=== PATIENT | female | born 1960 | race Caucasian/White ===

== ENCOUNTER → 2017-01-14 | Outpatient (REF) | payer OTHER ==
[2017-01-14 13:04] LABS: MEAN CORPUSCULAR HEMOGLOBIN 29.2 pg (27.0-33.0); MEAN CORPUSCULAR HGB CONC 31.7 g/dl (32.0-36.5); MEAN CORPUSCULAR VOLUME 92.3 fl (80.0-96.0); PLATELET COUNT, AUTOMATED 273 10^3/uL (150-450); RED CELL DISTRIBUTION WIDTH 13.8 % (11.5-14.5); WHITE BLOOD COUNT 5.5 10^3/uL (4.0-10.0)
[2017-01-14 13:26] LABS: ALBUMIN 4.1 GM/DL (3.2-5.2); ALBUMIN/GLOBULIN RATIO 1.41 (1.00-1.93); ALKALINE PHOSPHATASE 84 U/L (45-117); ALT/SGPT 33 U/L (12-78); ANION GAP 6 MEQ/L (8-16); AST/SGOT 16 U/L (7-37); BILIRUBIN,TOTAL 0.3 MG/DL (0.2-1.0); BLOOD UREA NITROGEN 15 MG/DL (7-18); CALCIUM LEVEL 9.4 MG/DL (8.5-10.1); CARBON DIOXIDE LEVEL 32 MEQ/L (21-32); CHLORIDE LEVEL 104 MEQ/L (98-107); CHOLESTEROL LEVEL 316 MG/DL (<200); CREATININE FOR GFR 0.62 MG/DL (0.55-1.02); GLOMERULAR FILTRATION RATE > 60.0 (>51); GLUCOSE, FASTING 91 MG/DL (70-105); POTASSIUM SERUM 4.3 MEQ/L (3.5-5.1); SODIUM LEVEL 142 MEQ/L (136-145); TRIGLYCERIDES LEVEL 256 MG/DL (<150)
== END ==
LOC: M SFHCPLAZ 08:22
PROVIDERS: ATTEND Nurse Practitioner Adult Health
DX: Z00.00 Encounter for general adult medical examination without abnormal findings (principal); E55.9 Vitamin D deficiency, unspecified

== ENCOUNTER 2017-04-08 08:56 | Day surgery (SDC) | payer BC, OTHER ==
[2017-04-08] MEDS: LR 1,000 ML IV (09:40)
[2017-04-08] MEDS: LIDOCAINE W/EPINEPHRINE 1% 20ML VIAL As Ordered (10:14)
[2017-04-08] MEDS ORDERED: MIDAZOLAM INJ 2 MG/2 ML VIAL (J2250) As Ordered (10:18)
[2017-04-08] MEDS ORDERED: fentaNYL 100 MCG/2 ML INJECTION (J3010) As Ordered (10:18)
[2017-04-08] MEDS ORDERED: LIDOCAINE 2% INJ 100 MG/5 ML SDV (FOR ANES.) As Ordered (10:20)
[2017-04-08] MEDS ORDERED: PROPOFOL 200 MG/20 ML VIAL As Ordered (10:20)
[2017-04-08] MEDS ORDERED: ONDANSETRON 4MG/2ML VIAL (J2405) As Ordered (10:22)
[2017-04-08] MEDS ORDERED: KETOROLAC 60 MG/2 ML VIAL (J1885) As Ordered (10:22)
[2017-04-08] MEDS ORDERED: dexameTHASONE 4 MG/ML 1ML VIAL (J1100) As Ordered (10:22)
== END 2017-04-08 11:35 | disposition home or self-care (01) ==
LOC: M SDC 08:56
DX: D17.1 Benign lipomatous neoplasm of skin and subcutaneous tissue of trunk (principal); E78.5 Hyperlipidemia, unspecified; F41.9 Anxiety disorder, unspecified; F32.9 Major depressive disorder, single episode, unspecified; R06.02 Shortness of breath; M12.9 Arthropathy, unspecified; J45.909 Unspecified asthma, uncomplicated; R06.83 Snoring; Z88.5 Allergy status to narcotic agent; Z79.899 Other long term (current) drug therapy; Z98.51 Tubal ligation status; Z90.89 Acquired absence of other organs; Z78.0 Asymptomatic menopausal state; Z87.891 Personal history of nicotine dependence
CPT/HCPCS: 21931

== ENCOUNTER → 2018-05-28 | Outpatient (REF) | payer OTHER ==
[~2018-05-28] MED LIST: ALOELIQ9 PO; CENTTAB10 PO; FISH100049 PO; GARL10004 PO; IBUPOTC PO; JOINCAP2 PO; TARTCAP PO; TURMCAP PO; VITA500046 PO; VITATAB11 PO; ZOLO50TA PO; ZYRT10CA5 PO
[2018-05-28 13:07] LABS: ALBUMIN 4.3 GM/DL (3.2-5.2); ALT/SGPT 31 U/L (12-78); BILIRUBIN,TOTAL 0.4 MG/DL (0.2-1.0); BLOOD UREA NITROGEN 15 MG/DL (7-18); CALCIUM LEVEL 9.3 MG/DL (8.5-10.1); CARBON DIOXIDE LEVEL 28 MEQ/L (21-32); CHLORIDE LEVEL 106 MEQ/L (98-107); CHOLESTEROL LEVEL 264 MG/DL (<200); CHOLESTEROL RISK RATIO 6.439 (<5); CREATININE FOR GFR 0.62 MG/DL (0.55-1.30); GLOMERULAR FILTRATION RATE > 60.0 (>51); GLUCOSE, FASTING 96 MG/DL (70-100); HDL CHOLESTEROL 41 MG/DL (>40); LDL CHOLESTEROL 191 MG/DL (<100); NON-HDL-C 223 MG/DL; POTASSIUM SERUM 3.9 MEQ/L (3.5-5.1); SODIUM LEVEL 140 MEQ/L (136-145); TOTAL PROTEIN 7.1 GM/DL (6.4-8.2); TRIGLYCERIDES LEVEL 160 MG/DL (<150)
[2018-05-28 13:08] LABS: TOTAL 25(OH) VITAMIN D 40.5 NG/ML (30.0-100.0); VITAMIN B12 LEVEL 1163 PG/ML (247-911)
== END ==
LOC: M SFHCPLAZ 11:01
PROVIDERS: ATTEND Nurse Practitioner Adult Health
DX: Z00.00 Encounter for general adult medical examination without abnormal findings (principal); E55.9 Vitamin D deficiency, unspecified

== ENCOUNTER → 2018-08-25 | Outpatient (CLI) | payer BC, OTHER ==
[~2018-08-25] MED LIST changes: +ALL10TAB28 PO; +BIOT50004 PO; +CART1TAB2 PO; +CBD OIL TOP; +CYMB1CAP5 PO; +FISH1000 PO; +MULTCAP PO; +NATU1TAB5 PO; +RESV1CAP2 PO; +TYLE650T35 PO
--- NOTE | 2018-08-25 09:37 | ECGEPIP ---
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
[2018-08-25 09:53] LABS: HEMATOCRIT 42.3 % (36.0-47.0); HEMOGLOBIN 13.7 g/dl (12.0-15.5); MEAN CORPUSCULAR HEMOGLOBIN 29.8 pg (27.0-33.0); MEAN CORPUSCULAR HGB CONC 32.4 g/dl (32.0-36.5); PLATELET COUNT, AUTOMATED 262 10^3/uL (150-450); WHITE BLOOD COUNT 4.3 10^3/uL (4.0-10.0)
[2018-08-25 10:03] LABS: INR 0.99; PROTHROMBIN TIME 12.8 SECONDS (11.8-14.0)
[2018-08-25 10:18] LABS: ALBUMIN 4.2 GM/DL (3.2-5.2); ALT/SGPT 34 U/L (12-78); BILIRUBIN,TOTAL 0.6 MG/DL (0.2-1.0); BLOOD UREA NITROGEN 11 MG/DL (7-18); CALCIUM LEVEL 9.4 MG/DL (8.5-10.1); CARBON DIOXIDE LEVEL 30 MEQ/L (21-32); CHLORIDE LEVEL 105 MEQ/L (98-107); CREATININE FOR GFR 0.71 MG/DL (0.55-1.30); GLOMERULAR FILTRATION RATE > 60.0 (>51); GLUCOSE, FASTING 97 MG/DL (70-100); POTASSIUM SERUM 4.1 MEQ/L (3.5-5.1); SODIUM LEVEL 140 MEQ/L (136-145); TOTAL PROTEIN 7.3 GM/DL (6.4-8.2)
[2018-08-25 10:23] LABS: ERYTHROCYTE SEDIMENTATION RATE 5 mm/hr (0-30)
--- NOTE | 2018-08-25 21:15 | REP ---
Clinical: Hypercholesterolemia and high risk factors. Arthritis . Comparison: None . Technique: PA and lateral. Findings: The mediastinum and cardiac silhouette are normal. The lung rodriguez are clear and without acute consolidation, effusion, or pneumothorax. The skeletal structures are intact and normal. Impression: 1. No acute cardiopulmonary process. Electronically Signed by Minor Leblanc MD 08/25/2018 09:06 P
== END ==
LOC: M LAB 09:09
PROVIDERS: ATTEND Orthopaedic Surgery
DX: Z01.818 Encounter for other preprocedural examination (principal); M17.12 Unilateral primary osteoarthritis, left knee

== ENCOUNTER 2018-09-08 06:50 | Inpatient (IN) | payer BC, OTHER ==
--- NOTE | 2018-09-04 11:21 | HPE ---
DATE OF ANTICIPATED ADMISSION: 09/08/2018 DATE OF VISIT: 09/04/2018 ATTENDING PHYSICIAN: Dr. Hall CHIEF COMPLAINT: Left knee pain and stiffness. HISTORY: The patient is a pleasant, 58-year-old female with progressively worsening left knee pain and stiffness. She failed to improve with conservative measures. She continues to have symptoms with weightbearing activities and activities of daily living. She consented for an elective left total knee arthroplasty with Dr. Hall for continued symptoms. Medical optimization completed with Dr. Hamilton and was available for review during today's visit. CURRENT MEDICATIONS: - Zyrtec 10 mg daily - fish oil 100 mg twice daily - vitamin D 5000 units daily - Biotin 10 mg daily - Cymbalta 30 mg daily - Metamucil powder once daily CHRONIC MEDICAL CONDITIONS: Anxiety, depression, history of parathyroidectomy, seasonal allergies. SURGICAL HISTORY: Colonoscopy, parathyroidectomy, cyst removal from breast. ALLERGIES: CODEINE. SOCIAL HISTORY: The patient does not use tobacco products. She occasionally consumes alcohol. REVIEW OF SYSTEMS: The patient denies fevers, chills, nausea, vomiting, or diarrhea. She denies chest pain, shortness of breath, lightheadedness, dizziness, or headaches. She denies any abdominal pain. The patient denies any recent upper respiratory or urinary tract infection symptoms. She continues to have left knee pain with weightbearing activities and activities of daily living. PHYSICAL EXAMINATION: General: Well-nourished, well-developed female, in no apparent distress. She is alert, oriented, and cooperative. Mood and affect are appropriate. Vital signs: Height 5 feet 6-1/2 inches. Weight 173 pounds. Temperature 97.2. Blood pressure 132/80. Heart rate 62. Respirations 18. Neck: Supple without lymphadenopathy. Heart: Regular rate and rhythm. Lungs: Clear to auscultation bilaterally. Abdomen: Soft, nontender to palpation. Bowel sounds are present. Musculoskeletal: Left knee reveals no erythema, edema, or ecchymosis. Her skin is intact. There is tenderness along the medial joint line. The patient has essentially full motion of the left knee with 5/5 strength of the left lower extremity. No hip irritability elicited with range of motion testing. The patient's calf is soft, nontender to palpation with no palpable cords noted. She is neurovascularly intact distally. LABORATORY DATA: Chest x-ray: No acute cardiopulmonary process. Left knee x-ray: Notable for end-stage degenerative changes. EKG: Sinus bradycardia with short OK interval. Low QRS voltage in the precordial leads in limb. Inferior myocardial infarction probably old. Prothrombin time12.8, INR 0.99. Comprehensive metabolic profile: Fasting glucose 97, BUN 11, creatinine 0.71, GFR greater than 60, sodium 140, potassium 4.1, chloride 105, carbon dioxide 30, anion gap decreased at 5, calcium 9.4, AST 18, ALT 34, alkaline phosphatase 97, total bilirubin 0.6, total protein 7.3, albumin 4.2, albumin-globulin ratio 1.35. Complete blood count: ESR 5, WBCs 4.3, RBCs 4.60, hemoglobin 13.7, hematocrit 42.3, platelets 262. IMPRESSION: Left knee degenerative arthritis with x-rays notable for end-stage degenerative changes. PLAN: The patient has consented for an elective left total knee arthroplasty with Dr. Hall for her continued symptoms. Medical optimization completed with Dr. [place]. [place]
[2018-09-08] VITALS (7 sets, daily range): BP systolic 100–112; BP diastolic 54–65
[~2018-09-08] VITALS: Ht 170.2 cm; Wt 77.1 kg
[2018-09-08] MEDS ORDERED: LR 1,000 ML IV ONE (07:00)
[2018-09-08] MEDS ORDERED: ACETAMINOPHEN 500 MG TAB PO ONE (07:00)
[2018-09-08] MEDS ORDERED: PROPOFOL 200 MG/20 ML VIAL As Ordered ONE (07:06)
[2018-09-08] MEDS ORDERED: LIDOCAINE 2% INJ 100 MG/5 ML SDV (FOR ANES.) As Ordered ONE ×2 (07:06→08:57)
[2018-09-08] MEDS ORDERED: BUPIVACAINE HCL 0.5% 30 ML VIAL As Ordered ONE (07:09)
[2018-09-08] MEDS ORDERED: dexameTHASONE 4 MG/ML 1ML VIAL (J1100) As Ordered ONE (07:10)
[2018-09-08] MEDS ORDERED: ONDANSETRON 4MG/2ML VIAL (J2405) As Ordered ONE ×2 (07:10→08:57)
[2018-09-08] MEDS ORDERED: fentaNYL 100 MCG/2 ML INJECTION (J3010) As Ordered ONE ×2 (08:22→08:59)
[2018-09-08] MEDS ORDERED: BUPIVACAINE HCL 0.25% 10 ML VIAL As Ordered ONE ×2 (08:22→08:39)
[2018-09-08] MEDS ORDERED: MIDAZOLAM INJ 2 MG/2 ML VIAL (J2250) As Ordered ONE ×2 (08:22→08:59)
[2018-09-08] MEDS ORDERED: BUPIVACAINE HCL 0.25% 30 ML VIAL As Ordered ONE (08:22)
[2018-09-08] MEDS ORDERED: ceFAZolin 1GM INJ (J0690 PER 500MG) As Ordered ONE (08:39)
[2018-09-08] MEDS ORDERED: TRANEXAMIC ACID 100 MG/ML 10ML VIAL As Ordered ONE (08:39)
[2018-09-08] MEDS ORDERED: BUPIVACAINE LIPOSOME/PF 1.3% 20ML VIAL (13.3MG/ML)(EXPAREL)(C9290 PER1MG) As Ordered ONE (08:40)
[2018-09-08] MEDS ORDERED: EPINEPHrine INJ 1 MG/ML 1ML AMP As Ordered ONE (08:40)
[2018-09-08] MEDS ORDERED: MIDAZOLAM INJ 2 MG/2 ML VIAL (J2250) IV ONE (09:30)
[2018-09-08] MEDS ORDERED: fentaNYL 100 MCG/2 ML INJECTION (J3010) IV ONE (09:30)
[2018-09-08] MEDS ORDERED: LIDOCAINE 1% MDV 20ML VIAL ONE (10:05)
[2018-09-08] MEDS ORDERED: ePHEDrine SULFATE 25 MG/5 ML(5MG/ML) SYRINGE As Ordered ONE ×2 (10:08→10:32)
[2018-09-08] MEDS ORDERED: METOCLOPRAMIDE INJ 10MG/2ML VIAL (J2765) As Ordered ONE (10:31)
[2018-09-08] MEDS ORDERED: HYDROMORPHONE HCL 0.5 MG/ 0.5 ML SYRINGE (J1170 PER 1) IV PRN ×2 (11:45)
[2018-09-08] MEDS ORDERED: fentaNYL 100 MCG/2 ML INJECTION (J3010) IV PRN (11:45)
[2018-09-08] MEDS ORDERED: METOCLOPRAMIDE INJ 10MG/2ML VIAL (J2765) IV PRN (11:45)
[2018-09-08] MEDS ORDERED: LR 1,000 ML IV SCH ×2 (11:45→13:15)
[2018-09-08] MEDS ORDERED: PROMETHAZINE INJ 25 MG/ML VIAL (J2550) IV PRN (11:45)
[2018-09-08] MEDS ORDERED: oxyCODONE 5MG TAB PO PRN (11:45)
--- NOTE | 2018-09-08 13:09 | REP ---
STATUS POST TKR: The femoral and tibial components of the total knee prosthetic device are well seated and well approximated. The alignment is near anatomical. There is expected postoperative soft tissue swelling. There is an anterior skin staple line in place. IMPRESSION: Status post TKR. Electronically Signed by Jagdeep Fuentes DO 09/08/2018 02:37 P
[2018-09-08] MEDS ORDERED: FLEET ENEMA PR PRN (13:15)
[2018-09-08] MEDS: ACETAMINOPHEN TAB 650MG DOSE (2X325MG) PO PRN (15:47)
[2018-09-08] MEDS ORDERED: PERCOCET 5MG/325MG TAB PO PRN (16:00)
[2018-09-08] MEDS: PERCOCET 5MG/325MG TAB PO PRN ×2 (18:31→22:30)
--- NOTE | 2018-09-08 21:48 | CR.PDOC ---
General Date of Consultation: Sep 08, 2018 Referring Provider: Steph Hall Primary Care Physician: Katiana Alberto Consultation REASON FOR CONSULTATION/CHIEF COMPLAINT:medical management post op left knee arthoplasty HISTORY OF PRESENT ILLNESS: 58 yo female with history of OA underwent left knee arthoplasty without complications. Medical management has been requested. Hope ent states pain is well controlled . she states no N, no V, no Cp, no SOB ALLERGIES: Please see below. HOME MEDICATIONS: Please see below. PAST MEDICAL HISTORY: 1. anxiety/depression 2. hyperlipdiemia 3. constipation 4. OA 5. seasonal allergies PAST SURGICAL HISTORY: 1. parathyroidectomy 2. right back lipoma removed 3. breast cyst removed FAMILY HISTORY: mother alive with OA/DJD, father alive with HTN,DM SOCIAL HISTORY: no tobacco, no EtOH, son recently engaged to be REVIEW OF SYSTEMS:10 systems reviewed and negative, except as listed in HPI PHYSICAL EXAMINATION: VITAL SIGNS: Please see below. GENERAL APPEARANCE: pleasant NAD AAOx3 HEENT: PEÑA/EOMI, oral mucosa moist RESPIRATORY: LCTA no W/R/R CARDIOVASCULAR: RRR no murmur ABDOMEN: soft NT ND NABS, obese EXTREMITIES: no ankle edema; left knee dressing intact, no drainage PSYCHIATRIC: normal mood, insight intact; normal affect LABORATORY DATA: Please see below. ASSESSMENT/PLAN: 1. s/p left knee arthroplasty - managment per ortho. 2. hyperlipidemia - continue home regimen 3. anxiety /Depression - currently well controlled with cymbalta. Her PCP recommended she increase the cymbalta in 2 days to 60mg. Discussed with patient that Cymbalta may lead to increased bleeding due to xarelto interaction (however, xarelto is currently at lower dose than used for PE/DVT). She will take this into consider before increasing her cymbalta. Advised if increased bleeding or bruising to see her PCP or go to nearest ER. 4. DVT prophylaxis - currently on xarelto. Advised NOT to use NSAIDS . Thank you for allowing to participate in the care of this patient. If you have any questions or concerns, please do not hesitate to call the hospitalist group Vital Signs/I&O Vital Signs Date Time Temp Pulse Resp B/P (MAP) Pulse Ox O2 Delivery O2 Flow Rate FiO2 09/08/18 15:30 96.5 90 15 109/64 (79) 96 Allergies Coded Allergies: codeine (Verified Adverse Reaction, Mild, nausea, 09/08/18) Home Medications Scheduled Biotin (Biotin) 5 Mg Capsule, 5,000 MCG PO DAILY, (Reported) Cartilage/Collagen/Bor/Hyalur (Move Free Ultra Tablet) 1 Each Tablet, 1 EACH PO DAILY, (Reported) Cetirizine HCl (Cetirizine HCl) 10 Mg Tablet, 10 MG PO DAILY, (Reported) Cholecalciferol (Vitamin D3) (Vitamin D3) 5,000 Unit Tablet, 5,000 UNIT PO DAILY, (Reported) Duloxetine Hcl (Cymbalta) 30 Mg Capsule.dr, 30 MG PO DAILY, (Reported) Multivitamin (Multivitamins) 1 Each Capsule, 1 CAP PO DAILY, (Reported) [place]-3 Fatty Acids/Fish Oil (Fish Oil 1,000 mg Capsule) 1 Each Capsule, 2,000 MG PO DAILY, (Reported) Resveratrol (Resveratrol) 250 Mg Capsule, Unknown Dose PO DAILY, (Reported) Scheduled PRN Acetaminophen (Tylenol Arthritis) 650 Mg Tablet.er, 2 TAB PO PRN PRN for PAIN, (Reported) Cannabidiol (Cbd Oil) Btl, TOP PRN PRN for PAIN, (Reported) knees ANDRAE GUTIERREZ DO Sep 08, 2018 15:39
[2018-09-09 02:30] VITALS: BP 108/63
[2018-09-09] MEDS: PERCOCET 5MG/325MG TAB PO PRN (02:34)
[2018-09-09 06:06] LABS: HEMATOCRIT 35.4 % (36.0-47.0); HEMOGLOBIN 11.6 g/dl (12.0-15.5); MEAN CORPUSCULAR HEMOGLOBIN 30.9 pg (27.0-33.0); MEAN CORPUSCULAR HGB CONC 32.8 g/dl (32.0-36.5); MEAN CORPUSCULAR VOLUME 94.1 fl (80.0-96.0); PLATELET COUNT, AUTOMATED 205 10^3/uL (150-450); RED BLOOD COUNT 3.76 10^6/uL (4.00-5.40); WHITE BLOOD COUNT 13.2 10^3/uL (4.0-10.0)
[2018-09-09 06:15] VITALS: BP 116/74
[2018-09-09 06:27] LABS: BLOOD UREA NITROGEN 13 MG/DL (7-18); CALCIUM LEVEL 8.8 MG/DL (8.5-10.1); CARBON DIOXIDE LEVEL 27 MEQ/L (21-32); CHLORIDE LEVEL 107 MEQ/L (98-107); CREATININE FOR GFR 0.72 MG/DL (0.55-1.30); GLOMERULAR FILTRATION RATE > 60.0 (>51); GLUCOSE, FASTING 129 MG/DL (70-100); POTASSIUM SERUM 3.8 MEQ/L (3.5-5.1); SODIUM LEVEL 141 MEQ/L (136-145)
[2018-09-09] MEDS: ACETAMINOPHEN TAB 650MG DOSE (2X325MG) PO PRN (06:50)
[2018-09-09] MEDS ORDERED: PERC5TAB12 PO (08:02)
[2018-09-09] MEDS ORDERED: XARE10TA PO (08:02)
[2018-09-09] MEDS ORDERED: MOM 30ML SUSPENSION UDC PO SCH (09:00)
[2018-09-09] MEDS ORDERED: MIRALAX *UNIT DOSE* 17GM PACKET PO SCH (09:00)
[2018-09-09] MEDS ORDERED: RIVAROXABAN 10 MG TAB (XARELTO) PO SCH (18:00)
--- NOTE | 2018-09-09 18:43 | RO ---
DATE OF PROCEDURE: 09/08/2018 PREPROCEDURE DIAGNOSIS: Degenerative arthritis of the left knee. POSTPROCEDURE DIAGNOSIS: Degenerative arthritis of the left knee. PROCEDURE: Left total knee arthroplasty using a size 5 cruciate-retaining femoral component. It was an Attune knee with a size 5 tibial tray and an 8 mm rotating platform polyethylene insert, and a 32 mm polyethylene button. All the components were cemented. The prosthesis was made by [employer]. SURGEON: Dr. Steph Hall JAVA LEAD DEVELOPER: Ms. Melony Mccord ANESTHESIA: Spinal with left femoral nerve block. SPECIMENS: Joint surface. COMPLICATIONS: None. ESTIMATED BLOOD LOSS: 20 mL. DESCRIPTION OF PROCEDURE: Antibiotics were given intravenously preoperatively, then successful left femoral nerve block and then a spinal anesthetic was induced, tourniquet placed on the left upper thigh and not inflated. The left lower extremity was carefully prepped and draped in the usual sterile fashion. After appropriate time out with the leg elevated, the tourniquet was inflated. Longitudinal incision was made for a medial parapatellar approach to the knee. Bovie cautery was used to coagulate crossing vessels. We subperiosteally dissected around the proximal, medial and lateral tibial plateaus, then everted the knee and flexed the knee, placed the drill down the center of the femoral canal followed by the intramedullary tiffany and the distal femoral cutting jig set at 9 degree resection level at 5 degree valgus for a left knee. Block was pinned into position. Distal femoral cut performed, AP sizing jig measured for a size 5. It was pinned into place with 3 degrees of external rotation. Then, the 4-in-1 block applied and anterior, posterior chamfer cuts performed. The notchplasty jig was placed for the trochlear notch, and the notch performed. We then exposed the proximal tibia and used the extramedullary alignment jig to estimate being parallel to the mechanical axis, referencing off the medial tibial condyle at 4 mm resection level. Block was pinned into position. Secondary check with the extramedullary tiffany confirmed that we appeared to be parallel to the mechanical axis, the proximal tibial osteotomy thus performed. Two small cysts on the posteromedial aspect of the tibia were debrided with a curette. We then placed the lamina slide forming machine tender medially and performed a completion lateral meniscectomy, debridement of the posterolateral osteophytes, there was a significant amount of chondrocalcinosis tissue which was also debrided with a rongeur. We then placed the lamina slide forming machine tender laterally and performed a completion medial meniscectomy and debridement of the posteromedial osteophytes and all the excess chondrocalcinosis tissue. The spacer block, 8 mm, fit the best with good symmetry and stability to varus/valgus stress testing, both in flexion and in extension. We then exposed the proximal tibia, sized for a #5 tibial tray, which was pinned into position, followed by the reamer and broach, excess medial osteophyte was removed with a rongeur. The trial 8 mm spacer was placed followed by the trial femoral component, brought the knee into extension, everted the patella, performed patellar osteotomy and sized for a 32 mm button. Lug holes drilled, patellofemoral tracking with the trial in place was anatomic. We then drilled the lug holes for the femur, removed all the trial components, copiously pulsatile lavage irrigated out the knee joint, placed Exparel in the subperiosteal tissues around the distal femur and proximal tibia as my plumber's assistant, Ms. Melony Mccord, mixed the cement on the back table as I prepared the bony surfaces for cementing with a copious amount of pulsatile lavage irrigant solution. Ms. Mccord was critical to the success of this difficult procedure by helping with appropriate soft tissue retraction, helped to manipulate the knee in flexion and extension several times, helped mix the cement, helped close the wound, helped prepare the patient amongst many other tasks to allow me to perform the operation smoothly and efficiently. We then cemented the tibial tray, removed the excess cement, placed the polyethylene, cemented the femoral component, removed the excess cement, brought the knee into extension, everted the patella, and then cemented the patellar button, removed the excess cement, and held the patellar button with a clamp until the cement hardened with the knee in full extension. As we were waiting for the cement to harden, copiously irrigated out the knee joint once again and then placed tranexamic acid in the knee joint and then began closing the apex of the arthrotomy with two #1 PDS sutures. The medial parapatellar area was closed with a #1 PDS suture and a running double-arm Stratafix used to close the remaining portion of the capsule. Then, the tourniquet was released. We irrigated between layers, closed the deep subdermal tissues with interrupted #2-0 PDS sutures, skin was closed with letty, covered by an Optifoam and a dry sterile bulky ortho dressing. She was then transferred to the recovery room in stable condition. There were no intraoperative complications.
== END 2018-09-09 11:50 | disposition home or self-care (01) | DRG 302 ==
LOC: M OR 06:50 → M MS5PR 13:00
PROVIDERS: ADMIT Orthopaedic Surgery; ATTEND Orthopaedic Surgery
PROC: 0SRD0J9 Replacement of Left Knee Joint with Synthetic Substitute, Cemented, Open Approach (ICD-10-PCS; principal; 2018-09-08 09:30)
DX: M17.12 Unilateral primary osteoarthritis, left knee (principal); Z79.899 Other long term (current) drug therapy; F41.9 Anxiety disorder, unspecified; F32.9 Major depressive disorder, single episode, unspecified; E78.5 Hyperlipidemia, unspecified; K59.00 Constipation, unspecified; Z88.5 Allergy status to narcotic agent

== ENCOUNTER → 2018-12-22 | Outpatient (CLI) | payer BC, OTHER ==
[~2018-12-22] MED LIST changes: -ALL10TAB28 PO; +ALL10TAB29 PO; +DICL1GEL3 TOP; +DICLOFENAC TOP; +META0.52 PO; +PERC5TAB12 PO; +RA T500C2 PO; +SM G150T PO; +TIZA4CAP PO; +VITACAP8 PO; +XARE10TA PO
[2018-12-22 09:27] LABS: HEMATOCRIT 42.6 % (36.0-47.0); HEMOGLOBIN 13.4 g/dl (12.0-15.5); MEAN CORPUSCULAR HEMOGLOBIN 29.8 pg (27.0-33.0); MEAN CORPUSCULAR HGB CONC 31.5 g/dl (32.0-36.5); MEAN CORPUSCULAR VOLUME 94.7 fl (80.0-96.0); PLATELET COUNT, AUTOMATED 241 10^3/uL (150-450); WHITE BLOOD COUNT 3.8 10^3/uL (4.0-10.0)
[2018-12-22 09:50] LABS: INR 1.06; PROTHROMBIN TIME 13.5 SECONDS (11.8-14.0)
[2018-12-22 10:00] LABS: ERYTHROCYTE SEDIMENTATION RATE 4 mm/hr (0-30)
[2018-12-22 10:04] LABS: ALT/SGPT 33 U/L (12-78); BILIRUBIN,TOTAL 0.4 MG/DL (0.2-1.0); BLOOD UREA NITROGEN 18 MG/DL (7-18); CARBON DIOXIDE LEVEL 27 MEQ/L (21-32); CHLORIDE LEVEL 108 MEQ/L (98-107); CREATININE FOR GFR 0.59 MG/DL (0.55-1.30); GLOMERULAR FILTRATION RATE > 60.0 (>51); GLUCOSE, FASTING 90 MG/DL (70-100); POTASSIUM SERUM 4.2 MEQ/L (3.5-5.1); SODIUM LEVEL 141 MEQ/L (136-145); TOTAL PROTEIN 7.2 GM/DL (6.4-8.2)
--- NOTE | 2018-12-22 12:36 | REP ---
Two-view chest: 12/22/2018. Indication: Preoperative assessment. Comparison: 70, 19. Findings: The lungs are clear. There is no pleural effusion or pneumothorax. The cardiomediastinal silhouette is unremarkable. Impression: No acute cardiopulmonary process. Electronically Signed by Edgard Ferraro DO 12/22/2018 12:28 P
--- NOTE | 2018-12-22 21:47 | ECGEPIP ---
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
== END ==
LOC: M LAB 08:13
PROVIDERS: ATTEND Orthopaedic Surgery
DX: M17.12 Unilateral primary osteoarthritis, left knee (principal)

== ENCOUNTER 2019-01-05 11:11 | Inpatient (IN) | payer BC, OTHER ==
--- NOTE | 2018-12-31 14:32 | HPE ---
DATE OF ADMISSION: 01/05/2019 CHIEF COMPLAINT: Right knee pain. HISTORY OF PRESENT ILLNESS Earlene is a pleasant 58-year-old female with progressively worsening right knee pain and stiffness. She has failed to improve with conservative treatment. She has elected for surgery for her continued symptoms. She has pain with weightbearing activities and her activities of daily living. X-rays of her knee are notable for advanced osteoarthritis of the right knee joint. She has consented for a right total knee arthroplasty by Dr. Talha Hall. Medical optimization was performed by Dr. Hamilton' office. ALLERGIES: Codeine makes her sick to her stomach, otherwise no known drug allergies. CURRENT MEDICATIONS: Cymbalta 60 mg daily, vitamin, fish oil 2000 units a day, tart emerson extract, garlic extract, vitamin D 5000 units, move free joint ultra every day, vitamin B12 2500 mg daily. PAST MEDICAL HISTORY: Includes high cholesterol, anxiety and depression. PAST SURGICAL HISTORY: Includes parathyroidectomy, tubal ligation, lipoma excision right arm pit, and left total knee arthroplasty. SOCIAL HISTORY: This patient does not smoke, rarely drinks alcohol and is not working. FAMILY HISTORY: Noncontributory. REVIEW OF SYSTEMS: This patient denies chest pain, heart palpitations, cough, wheezing, difficulty breathing and shortness breath. She denies abdominal pain, nausea, vomiting, diarrhea or constipation. She denies recent upper respiratory infection or urinary tract infection symptoms. She does complain of persistent pain in the right knee and pain with weightbearing activities in her right knee. PHYSICAL EXAMINATION: General: She is well-nourished, well-developed, in no acute distress, alert female patient. She walks with a mild limp favoring the right lower extremity. She is not using assistive devices. Vital Signs: She is 67 inches tall, weighs 170.6 pounds, temperature of 98.6, blood pressure 131/62, pulse 62, and respirations of 14. Neck was supple without adenopathy or jugular venous distention. There were no carotid bruits appreciated upon auscultation. Lungs were clear to auscultation without rales or wheeze. Heart: Regular rate and rhythm. Abdomen: Bowel sounds were present. Extremities: Examination of the knee revealed intact skin. She had decreased range of motion secondary to pain and stiffness. The limb is neurovascularly intact. LABORATORY DATA: Chest x-ray showed no acute cardiopulmonary disease processes. Electrocardiogram (EKG) showed normal sinus rhythm at 67 beats per minute. Protime 13.5, INR 1.06. CBC showed a white count of 3.8 and mean corpuscular hemoglobin concentration of 31.5, otherwise within normal limits with a sed rate of 4, glucose 90, BUN 18, creatinine 0.59, sodium 141, and potassium 4.2. IMPRESSION: Symptomatic osteoarthritis of the right knee joint. PLAN: Consented for a right total knee arthroplasty by Dr. Talha Hall.
[~2019-01-05] VITALS: Ht 170.2 cm; Wt 78.5 kg
[~2019-01-05 11:11] MED LIST changes: +ceFAZolin SOD 2 GM in IV 1 EA IV ONE
[2019-01-05] MEDS ORDERED: fentaNYL 100 MCG/2 ML INJECTION (J3010) As Ordered ONE (13:51)
[2019-01-05] MEDS ORDERED: MIDAZOLAM INJ 2 MG/2 ML VIAL (J2250) As Ordered ONE ×2 (13:51→14:06)
[2019-01-05] MEDS: fentaNYL 100 MCG/2 ML INJECTION (J3010) IV PRN ×2 (14:03→14:05)
[2019-01-05] MEDS: MIDAZOLAM INJ 2 MG/2 ML VIAL (J2250) IV PRN ×2 (14:03→14:04)
[2019-01-05] MEDS ORDERED: PROPOFOL 200 MG/20 ML VIAL As Ordered ONE (14:06)
[2019-01-05] MEDS ORDERED: LIDOCAINE 2% INJ 100 MG/5 ML SDV (FOR ANES.) As Ordered ONE (14:06)
[2019-01-05] MEDS ORDERED: ceFAZolin 1GM INJ (J0690 PER 500MG) As Ordered ONE (14:26)
[2019-01-05] MEDS ORDERED: BUPIVACAINE HCL 0.25% 10 ML VIAL As Ordered ONE (14:26)
[2019-01-05] MEDS ORDERED: TRANEXAMIC ACID 100 MG/ML 10ML VIAL As Ordered ONE (14:26)
[2019-01-05] MEDS ORDERED: EPINEPHrine INJ 1 MG/ML 1ML AMP As Ordered ONE (14:27)
[2019-01-05] MEDS ORDERED: BUPIVACAINE LIPOSOME/PF 1.3% 20ML VIAL (13.3MG/ML)(EXPAREL)(C9290 PER1MG) As Ordered ONE (14:27)
[2019-01-05] MEDS ORDERED: ROPIvacaine 0.5% 30 ML INJECTION (J2795 PER 1MG) ONE (15:14)
[2019-01-05] MEDS ORDERED: LIDOCAINE 1% MDV 20ML VIAL ONE (15:14)
[2019-01-05] MEDS ORDERED: dexameTHASONE 10 MG/1 ML VIAL PRES.FREE (J1100) ONE (15:14)
[2019-01-05] MEDS ORDERED: PHENYLephrine HCL 500 MCG/5 ML (100MCG/ML) SYRINGE (J2370) As Ordered ONE (15:56)
[2019-01-05] MEDS ORDERED: ePHEDrine SULFATE 25 MG/5 ML(5MG/ML) SYRINGE As Ordered ONE (15:57)
[2019-01-05 17:00] VITALS: BP 125/70
[2019-01-05] MEDS ORDERED: fentaNYL 100 MCG/2 ML INJECTION (J3010) IV PRN (17:15)
[2019-01-05] MEDS ORDERED: PERCOCET 5MG/325MG TAB PO PRN ×2 (17:15→21:00)
[2019-01-05] MEDS ORDERED: LR 1,000 ML IV SCH ×2 (17:15→18:16)
[2019-01-05] MEDS ORDERED: ONDANSETRON 4MG/2ML VIAL (J2405) IV PRN (17:15)
[2019-01-05 18:10] VITALS: BP 125/65
[2019-01-05] MEDS ORDERED: ACETAMINOPHEN TAB 650MG DOSE (2X325MG) PO PRN (18:16)
[2019-01-05] MEDS ORDERED: FLEET ENEMA PR PRN (18:16)
[2019-01-05] MEDS ORDERED: HYDROMORPHONE HCL 0.5 MG/ 0.5 ML SYRINGE (J1170 PER 1) IV PRN ×2 (18:16)
--- NOTE | 2019-01-05 18:25 | CR.PDOC ---
General Date of Consultation: Jan 05, 2019 Consultation CHIEF COMPLAINT: R. knee pain HISTORY OF PRESENT ILLNESS: Patient is a 58F with PMH chronic R. knee pain, OA, HLD, anxiety/depression is admitted post R. total knee replacement. Patient reported ongoing pain chronically failing conservative measures and came for elective R. TKR now post op. She denies any current discomfort including knee pain, chest pain, SOB, fever, chills. She states that she has HLD but has not start her medication yet and is waiting another 2 week to do so. PAST MEDICAL HISTORY: Refer to HPI PAST SURGICAL HISTORY: b/l knee replacement tubal ligation parathyroidectomy SOCIAL HISTORY: Denies tobacco, alcohol or illicit drug use. FAMILY HISTORY: Mother- OA Father- HTN, DM ALLERGIES: Please see below. REVIEW OF SYSTEMS: 10 point review of system negative except as stated in HPI HOME MEDICATIONS: Please see below. PHYSICAL EXAMINATION: General: No acute distress, Alert Eyes: Normal sclera, EOMI, PEÑA HENT: Atraumatic, neck supple, moist mucous membranes Cardiovascular: Normal rate, normal rhythm. Pulmonary: Clear to auscultation b/l, no wheezing GI: Soft, nontender, nondistended Skin: Warm and dry. R. knee with overlying bandage clean and dry. Neuro: CN grossly intact. No focal deficits. Psych: oriented x 3 LABORATORY DATA: See below. MICROBIOLOGY: Please see below. ASSESSMENT AND PLAN: 1. R. knee pain - s/p R. TKR by orthopedic surgery 01/05/19. - Pain control. PT/OT. - On Xarelto. 2. OA - s/p b/l total knee replacement. - PT/OT. 3. HLD - To be re-assess and decide whether to start with PCP. DVT ppx: Xarelto Code status: Full code Vital Signs/I&O Vital Signs Date Time Temp Pulse Resp B/P (MAP) Pulse Ox O2 Delivery O2 Flow Rate FiO2 01/05/19 16:55 67 18 117/68 (84) 96 Room Air 01/05/19 16:40 97.7 01/05/19 14:45 2 Allergies Coded Allergies: codeine (Verified Adverse Reaction, Mild, nausea, 12/23/18) Home Medications Scheduled Biotin (Biotin) 5 Mg Capsule, 5,000 MCG PO DAILY, (Reported) Cartilage/Collagen/Bor/Hyalur (Move Free Ultra Tablet) 1 Each Tablet, 1 EACH PO DAILY, (Reported) Cetirizine HCl (Cetirizine HCl) 10 Mg Tablet, 10 MG PO DAILY, (Reported) Cholecalciferol (Vitamin D3) (Vitamin D3) 5,000 Unit Tablet, 5,000 UNIT PO DAILY, (Reported) Duloxetine Hcl (Cymbalta) 30 Mg Capsule.dr, 60 MG PO DAILY, (Reported) Garlic (Garlic) 1 Each Tablet, 150 MG PO DAILY, (Reported) Multivitamin (Multivitamins) 1 Each Capsule, 1 CAP PO DAILY, (Reported) [place]-3 Fatty Acids/Fish Oil (Fish Oil 1,000 mg Capsule) 1 Each Capsule, 2,000 MG PO DAILY, (Reported) Psyllium Husk (Metamucil) 0.4 Gm Capsule, 0.52 GM PO DAILY, (Reported) Resveratrol (Resveratrol) 250 Mg Capsule, 3 TABS PO DAILY, (Reported) Turmeric Root Extract (Turmeric) 500 Mg Capsule, 500 MG PO DAILY, (Reported) Vitamin B Complex (Vitamin B Complex) 1 Each Capsule, 1 CAP PO DAILY, (Reported) Scheduled PRN Acetaminophen (Tylenol Arthritis) 650 Mg Tablet.er, 2 TAB PO PRN PRN for PAIN, (Reported) Cannabidiol (Cbd Oil) Btl, TOP PRN PRN for PAIN, (Reported) knees Diclofenac Sodium (Diclofenac Sodium) 1% 100GM Gel..gram., 4 GM TOP QID PRN for PAIN, #1 (Reported) Apply to area of pain Tizanidine HCl (Tizanidine HCl) 4 Mg Capsule, 4 MG PO TIDP PRN for MUSCLE SPASMS, (Reported) LINCOLN MEDRANO MD Jan 05, 2019 18:25
--- NOTE | 2019-01-05 18:27 | REP ---
REASON FOR EXAM: Pain, status-post TKR. There is a total knee prosthetic device in place. The femoral and tibial components of which are well seated and well approximated. The alignment is near anatomical. There is an anterior midline skin staple line in place. There is expected postoperative soft-tissue swelling. IMPRESSION:Status-post TKR. Electronically Signed by Jagdeep Fuentes DO 01/05/2019 06:58 P
[2019-01-05 19:10] VITALS: BP 111/73
[2019-01-05 20:10] VITALS: BP 134/69
[2019-01-05 21:10] VITALS: BP 120/68
[2019-01-05] MEDS: ONDANSETRON 4MG/2ML VIAL (J2405) IV PRN (21:21)
[2019-01-05] MEDS: ceFAZolin SOD 2 GM in IV 1 EA IV SCH (22:09)
[2019-01-05 22:10] VITALS: BP 130/74
[2019-01-05] MEDS: PERCOCET 5MG/325MG TAB PO PRN (22:10)
[2019-01-06 02:00] VITALS: BP 102/67
[2019-01-06] MEDS: PERCOCET 5MG/325MG TAB PO PRN (02:28)
[2019-01-06] MEDS: ceFAZolin SOD 2 GM in IV 1 EA IV SCH ×2 (02:28→08:59)
[2019-01-06] MEDS: ONDANSETRON 4MG/2ML VIAL (J2405) IV PRN ×2 (04:21→09:03)
[2019-01-06 06:00] VITALS: BP 117/70
[2019-01-06 06:28] LABS: HEMATOCRIT 37.4 % (36.0-47.0); HEMOGLOBIN 11.9 g/dl (12.0-15.5); MEAN CORPUSCULAR HGB CONC 31.8 g/dl (32.0-36.5); MEAN CORPUSCULAR VOLUME 94.2 fl (80.0-96.0); PLATELET COUNT, AUTOMATED 242 10^3/uL (150-450); RED BLOOD COUNT 3.97 10^6/uL (4.00-5.40); WHITE BLOOD COUNT 13.3 10^3/uL (4.0-10.0)
[2019-01-06 06:39] LABS: INR 1.12; PROTHROMBIN TIME 14.1 SECONDS (11.8-14.0)
[2019-01-06 06:43] LABS: BLOOD UREA NITROGEN 13 MG/DL (7-18); CALCIUM LEVEL 8.9 MG/DL (8.5-10.1); CARBON DIOXIDE LEVEL 28 MEQ/L (21-32); CHLORIDE LEVEL 103 MEQ/L (98-107); CREATININE FOR GFR 0.77 MG/DL (0.55-1.30); GLOMERULAR FILTRATION RATE > 60.0 (>51); GLUCOSE, FASTING 160 MG/DL (70-100); POTASSIUM SERUM 3.6 MEQ/L (3.5-5.1); SODIUM LEVEL 140 MEQ/L (136-145)
[2019-01-06] MEDS ORDERED: XARE10TA PO (06:48)
[2019-01-06] MEDS ORDERED: PERC5TAB12 PO (06:48)
[2019-01-06] MEDS ORDERED: MOM 30ML SUSPENSION UDC PO SCH (09:00)
[2019-01-06] MEDS ORDERED: MIRALAX *UNIT DOSE* 17GM PACKET PO SCH (09:00)
--- NOTE | 2019-01-06 09:51 | RO ---
DATE OF PROCEDURE: 01/05/2019 PREOPERATIVE DIAGNOSIS: Right knee degenerative arthritis. POSTOPERATIVE DIAGNOSIS: Right knee degenerative arthritis. PROCEDURE: Right total knee arthroplasty using a size 5 femoral component cruciate retaining Attune knee with a size 5 tibial tray and a 6 mm rotating platform polyethylene insert and a 35 mm polyethylene button. All components were cemented. Prosthesis was made by [employer]. SURGEON: Dr. Steph Hall PILE DRIVING TECHNICIAN: Mr. Puneet Perez ANESTHESIA: Spinal with right femoral nerve block. COMPLICATIONS: None. SPECIMEN: Joint surface. ESTIMATED BLOOD LOSS: 20 mL. PROCEDURE: Antibiotics were given intravenously preoperative and a successful right femoral nerve block and spinal anesthetic was induced. Tourniquet was placed on the right upper thigh and not-inflated. Right lower extremity was carefully prepped and draped in the usual sterile fashion and elevated. After appropriate time out the tourniquet was inflated. A longitudinal incision was made for a medial parapatellar approach to the knee. Bovie cautery was used to coagulate crossing vessels. Medial parapatellar arthrotomy was performed. Subperiosteal dissection of the proximal medial and lateral tibial plateaus were performed and the patella ws everted and flexed. The drill was placed down the center of the femoral canal followed by the intramedullary tiffany and the distal femoral cutting jig set at 5 degrees of valgus for a right knee at 9 mm resection level. Distal femoral cut was performed. AP sizing jig measured for a size #5. 3 degrees of external rotation dialed in and pins were placed, 4 in 1 block applied. Anterior and posterior chamfer cuts were performed. We then placed the jig for the sulcus cut and the sulcus cut was performed. We then exposed the proximal tibial and used the extramedullary alignment jig to estimate being parallel to the mechanical axis referencing off the medial tibial condyle at 4 mm resection level. Block was pinned in to place and secondary check of the medullary tiffany confirmed that we appeared to parallel to the mechanical axis. The proximal tibial osteotomy was performed. Lamina scheduling analyst placed medially and we performed a completion lateral meniscectomy and debridement of the posterolateral osteophytes. We then placed the lamina scheduling analyst laterally and performed a completion medial meniscectomy and debridement of the posterior medial osteophytes. The spacer block was applied and the 6 mm fit very nicely with good symmetry to varus and valgus stress testing both in flexion and in extension. We then exposed the proximal tibia size for a #5 tibial tray and it was pinned in to position followed by the reamer and the broach and then the trial placed. The trial femoral component was placed and brought the knee into extension and everted the patella and performed a patellar osteotomy sized for a 35 button. Lug holes were drilled. Trial placed and the patellofemoral tracking was anatomic. We drilled the lug holes for the femur then we removed all the trial components and placed Exparel in the subperiosteal tissues of the distal femur and the proximal tibia and then I prepared the bony surfaces for cementing with a copious amount of pulsatile lavage irrigation solution as my assistant accounting manager Mr. Puneet Perez mixed the cement on the back table. He was also critical to the success of this difficult procedure by helping to manipulate the knee and help with appropriate soft-tissue retraction and help to close the wound and help to prepare the patient and helped in many other ways to allow me to perform the operation smooth, efficiently and safely. I then cemented the tibial tray and removed excess cement and placed a the polyethylene and cemented the femoral component and removed excess cement and brought the knee into extension. Cemented the patellar button and removed excess cement and held it with a clamp with the knee in extension until the cement hardened. As we were awaiting this we copiously pulsatile lavaged irrigated out the knee joint once again and then instilled TXA and then closed the apex of the arthrotomy with two #1 PDS sutures and medial parapatellar area was closed with a single #1 PDS suture then a running double armed #1 Stratafix was used to closed the capsule and then the tourniquet was released. We irrigated again and closed the deep subdermal tissues with interrupted 2-0 PDS sutures and skin was closed with letty covered by an Optifoam or dry sterile bulky dressing and then the patient was transferred to the recovery room in stable condition. There are no intraoperative complications.
--- NOTE | 2019-01-06 13:47 | IPNPDOC ---
Date Seen The patient was seen on 01/06/19. Progress Note SUBJECTIVE: Patient reports feeling more pain today but tolerable and can still ambulate. No acute events reported overnight. Afebrile. WBC 13. OBJECTIVE PHYSICAL EXAMINATION: VITAL SIGNS: Please see below. General: No acute distress, Alert Eyes: Normal sclera, EOMI, PEÑA HENT: Atraumatic, neck supple, moist mucous membranes Cardiovascular: Normal rate, normal rhythm. Pulmonary: Clear to auscultation b/l, no wheezing GI: Soft, nontender, nondistended Skin: Warm and dry. R. knee with overlying bandage clean and dry. Neuro: CN grossly intact. No focal deficits. Psych: oriented x 3 LABORATORY DATA, IMAGING STUDIES, MICROBIOLOGY: Please see below. DVT prophylaxis ordered?: Xarelto ASSESSMENT AND PLAN: 1. R. knee pain - s/p R. TKR by orthopedic surgery 01/05/19. - Pain control. PT/OT. - On Xarelto. Likely d/c today by primary and can f/u with ortho outpatient. 2. OA - s/p b/l total knee replacement. - PT/OT. 3. HLD - To be re-assess and decide whether to start with PCP. DVT ppx: Xarelto Code status: Full code VS, I&O, 24H, Fishbone Vital Signs/I&O Vital Signs Date Time Temp Pulse Resp B/P (MAP) Pulse Ox O2 Delivery O2 Flow Rate FiO2 01/06/19 07:22 84 16 99 Room Air 01/06/19 06:00 97.5 117/70 (86) 01/05/19 14:45 2 I&O- Last 24 Hours up to 6 AM 01/06/19 06:00 Intake Total 2700 ml Output Total 1320 ml Balance 1380 ml Laboratory Data 24H LABS Laboratory Tests 2 01/06/19 05:59: Nucleated Red Blood Cells % (auto) 0.0, Prothrombin Time 14.1H, Prothromb Time International Ratio 1.12, Anion Gap 9, Glomerular Filtration Rate > 60.0, C alcium Level 8.9 CBC/BMP Laboratory Tests 01/06/19 05:59 LINCOLN MEDRANO MD Jan 06, 2019 13:47
[2019-01-06] MEDS ORDERED: RIVAROXABAN 10 MG TAB (XARELTO) PO SCH (18:00)
== END 2019-01-06 13:30 | disposition home or self-care (01) | DRG 302 ==
LOC: M OR 11:11 → M MS5PR 17:40
PROVIDERS: ADMIT Orthopaedic Surgery; ATTEND Orthopaedic Surgery
PROC: 0SRC0J9 Replacement of Right Knee Joint with Synthetic Substitute, Cemented, Open Approach (ICD-10-PCS; principal; 2019-01-05 14:05)
DX: M17.11 Unilateral primary osteoarthritis, right knee (principal); F32.9 Major depressive disorder, single episode, unspecified; Z79.899 Other long term (current) drug therapy; F41.9 Anxiety disorder, unspecified

== ENCOUNTER → 2019-03-13 | Outpatient (CLI) | payer BC, OTHER ==
[~2019-03-13] MED LIST changes: -ceFAZolin SOD 2 GM in IV 1 EA IV ONE
[2019-03-13 10:48] LABS: ALBUMIN 4.3 GM/DL (3.2-5.2); ALT/SGPT 39 U/L (12-78); BILIRUBIN,TOTAL 0.6 MG/DL (0.2-1.0); BLOOD UREA NITROGEN 11 MG/DL (7-18); CALCIUM LEVEL 9.2 MG/DL (8.5-10.1); CARBON DIOXIDE LEVEL 30 MEQ/L (21-32); CHLORIDE LEVEL 105 MEQ/L (98-107); CHOLESTEROL LEVEL 162 MG/DL (<200); CHOLESTEROL RISK RATIO 4.263 (<5); CPK CREATINE PHOSPHOKINASE 91 U/L (26-192); CREATININE FOR GFR 0.64 MG/DL (0.55-1.30); GLOMERULAR FILTRATION RATE > 60.0 (>51); GLUCOSE, FASTING 97 MG/DL (70-100); HDL CHOLESTEROL 38 MG/DL (>40); LDL CHOLESTEROL 95 MG/DL (<100); NON-HDL-C 124 MG/DL; POTASSIUM SERUM 3.9 MEQ/L (3.5-5.1); SODIUM LEVEL 142 MEQ/L (136-145); TOTAL PROTEIN 7.2 GM/DL (6.4-8.2); TRIGLYCERIDES LEVEL 147 MG/DL (<150)
== END ==
LOC: M LAB 09:35
PROVIDERS: ATTEND Internal Medicine
DX: E78.00 Pure hypercholesterolemia, unspecified (principal)

== ENCOUNTER → 2020-07-06 | Outpatient (REF) | payer OTHER ==
[~2020-07-06] MED LIST changes: +ACET650T61 PO; -ALL10TAB29 PO; +CETI-24 PO; -TYLE650T35 PO
[2020-07-06 10:59] LABS: ALBUMIN 4.2 GM/DL (3.2-5.2); ALT/SGPT 26 U/L (12-78); BILIRUBIN,TOTAL 0.5 MG/DL (0.2-1.0); BLOOD UREA NITROGEN 12 MG/DL (7-18); CALCIUM LEVEL 9.2 MG/DL (8.8-10.2); CARBON DIOXIDE LEVEL 31 MEQ/L (21-32); CHLORIDE LEVEL 107 MEQ/L (98-107); CHOLESTEROL LEVEL 161 MG/DL (<200); CHOLESTEROL RISK RATIO 3.285 (<5); CREATININE FOR GFR 0.53 MG/DL (0.55-1.30); GLOMERULAR FILTRATION RATE > 60.0 (>45); GLUCOSE, FASTING 91 MG/DL (70-100); HDL CHOLESTEROL 49 MG/DL (>40); LDL CHOLESTEROL 86 MG/DL (<100); NON-HDL-C 112 MG/DL; POTASSIUM SERUM 4.1 MEQ/L (3.5-5.1); SODIUM LEVEL 141 MEQ/L (136-145); TOTAL 25(OH) VITAMIN D 56.6 NG/ML (30.0-100.0); TRIGLYCERIDES LEVEL 130 MG/DL (<150)
== END ==
LOC: M SFHCPLAZ 09:03
PROVIDERS: ATTEND Nurse Practitioner Adult Health
DX: E78.00 Pure hypercholesterolemia, unspecified (principal); E55.9 Vitamin D deficiency, unspecified

== ENCOUNTER → 2020-10-07 | Outpatient (CLI) | payer BC ==
--- NOTE | 2020-10-07 09:29 | REPMRS ---
Patient History The patient states she had a clinical breast exam in August 2020. Patient is postmenopausal. Family history of breast cancer at age 47 in paternal grandmother. 4 benign excisional biopsies of both breasts. Patient states no breast complaints today. Patient has signed MRS History Sheet. Digital Woman Screen Mammo: October 07, 2020 - Exam #: [id number] Bilateral CC and MLO view(s) were taken. Technologist: Ctae Sanchez, Technologist Prior study comparison: November 12, 2018, digital mammo screening bilat, performed at [facility]. December 20, 2017, bilateral digital mammo screening bilat, performed at [facility]. FINDINGS: There are scattered fibroglandular densities. Screening. Digital screening (2D) mammography was performed bilaterally in the CC and MLO projections. Additionally, breast tomosynthesis (3D mammography) was performed bilaterally in the CC and MLO projections. Todays exam was compared to the prior exam/exams. By history, the patient has no complaints of a palpable breast abnormality or other significant breast complaints. The breasts are unchanged in size and shape. There are no [place]-soft tissue densities or spiculated masses. There is no internal architectural distortion. There are no suspicious [place]-calcific clusters. Skin thickening or nipple retraction is not present. IMPRESSION: BI-RADS Category 2- Benign Findings. There is no evidence of malignant alteration of the breasts. Followup examination recommended in one year. The Volpara volumetric breast density category is B, there are scattered areas of fibroglandular densities. This mammogram was read with the assistance of Bioscale,an FDA approved computer aided detection system for mammography. The lifetime Tyrer-Cuzick score is 17.6 % Negative x-ray reports should not delay surgical consultation if a dominant or clinically suspicious mass is present. Not all breast cancers can be identified by mammography. Therefore, we recommend that you continue to perform regular breast self-examination and physical examination and then promptly contact your physician of any concerns or changes. Adenosis and dense breasts may obscure an underlying neoplasm. Assessment: BI-RADS/ACR category 2 mammogram. Benign Findings. Recommendation Routine screening mammogram of both breasts in 1 year. Electronically Signed By: Jagdeep Fuentes DO 10/07/20 0901
== END ==
LOC: M WHC 07:44
PROVIDERS: ATTEND Obstetrics & Gynecology
DX: Z12.31 Encounter for screening mammogram for malignant neoplasm of breast (principal); Z80.3 Family history of malignant neoplasm of breast

== ENCOUNTER → 2021-07-10 | Outpatient (CLI) | payer OTHER ==
[2021-07-10 14:17] LABS: ALBUMIN 4.4 GM/DL (3.2-5.2); ALT/SGPT 29 U/L (12-78); BILIRUBIN,TOTAL 0.6 MG/DL (0.2-1.0); BLOOD UREA NITROGEN 14 MG/DL (7-18); CALCIUM LEVEL 9.8 MG/DL (8.8-10.2); CARBON DIOXIDE LEVEL 29 MEQ/L (21-32); CHLORIDE LEVEL 108 MEQ/L (98-107); CHOLESTEROL LEVEL 208 MG/DL (<200); CHOLESTEROL RISK RATIO 4.521 (<5); GLOMERULAR FILTRATION RATE > 60.0 (>45); GLUCOSE, FASTING 105 MG/DL (70-100); HDL CHOLESTEROL 46 MG/DL (>40); LDL CHOLESTEROL 139 MG/DL (<100); NON-HDL-C 162 MG/DL; POTASSIUM SERUM 4.1 MEQ/L (3.5-5.1); SODIUM LEVEL 141 MEQ/L (136-145); TOTAL PROTEIN 7.4 GM/DL (6.4-8.2); TRIGLYCERIDES LEVEL 115 MG/DL (<150)
[2021-07-10 14:23] LABS: TOTAL 25(OH) VITAMIN D 48.9 NG/ML (30.0-100.0); VITAMIN B12 LEVEL 541 PG/ML (247-911)
== END ==
LOC: M PLALAB 09:17
PROVIDERS: ATTEND Nurse Practitioner Adult Health
DX: Z00.00 Encounter for general adult medical examination without abnormal findings (principal); E55.9 Vitamin D deficiency, unspecified; E78.2 Mixed hyperlipidemia

== ENCOUNTER → 2021-12-14 | Outpatient (CLI) | payer BC, OTHER | LOC: M WHC 07:16 | PROVIDERS: ATTEND Nurse Practitioner Family | DX: Z12.31 Encounter for screening mammogram for malignant neoplasm of breast (principal) ==

== ENCOUNTER 2022-04-09 13:09 | Emergency (ER) | payer BC, OTHER ==
[~2022-04-09] VITALS: Ht 167.6 cm; Wt 80.0 kg
[2022-04-09] MEDS ORDERED: ASPIRIN 81MG CHEW TABLET PO ONE (15:50)
[2022-04-09 17:38] VITALS: BP 146/66
[2022-04-09 17:39] LABS: BASO # 0.1 10^3/uL (0.0-0.2); BASO % 1.6 % (0.0-1.0); EOS # 0.2 10^3/uL (0.0-0.5); EOS % 4.7 % (0.0-3.0); HEMATOCRIT 40.3 % (36.0-47.0); HEMOGLOBIN 13.1 g/dl (12.0-15.5); MEAN CORPUSCULAR HEMOGLOBIN 29.8 pg (27.0-33.0); MEAN CORPUSCULAR HGB CONC 32.5 g/dl (32.0-36.5); MEAN CORPUSCULAR VOLUME 91.8 fl (80.0-96.0); MONO # 0.5 10^3/uL (0.0-0.8); MONO % 9.7 % (2.0-8.0); NEUTROPHILS # 2.2 10^3/uL (1.5-8.5); NEUTROPHILS % 43.6 % (36.0-66.0); PLATELET COUNT, AUTOMATED 263 10^3/uL (150-450); RED BLOOD COUNT 4.39 10^6/uL (4.00-5.40); WHITE BLOOD COUNT 5.1 10^3/uL (4.0-10.0)
[2022-04-09 17:44] LABS: INR 0.97; PROTHROMBIN TIME 13.1 SECONDS (12.5-14.5)
[2022-04-09 17:46] LABS: D-DIMER QUANT 486.22 ng/ml (<500)
[2022-04-09 17:59] LABS: ALBUMIN 3.9 G/DL (3.2-5.2); ALKALINE PHOSPHATASE 86 U/L (46-116); ALT/SGPT 32 U/L (7.0-40); AST/SGOT 34 U/L (<34); BILIRUBIN,DIRECT < 0.1 MG/DL (<0.4); BILIRUBIN,TOTAL 0.3 MG/DL (0.3-1.2); BLOOD UREA NITROGEN 13 MG/DL (9-23); CALCIUM LEVEL 9.2 MG/DL (8.3-10.6); CARBON DIOXIDE LEVEL 27 MMOL/L (20-31); CHLORIDE LEVEL 107 MMOL/L (98-107); CK-MB VALUE MASS < 1.0 NG/ML (<3.6); CREATININE FOR GFR 0.53 MG/DL (0.55-1.30); GLOMERULAR FILTRATION RATE > 60.0 (>45); GLUCOSE, FASTING 98 MG/DL (74-106); POTASSIUM SERUM 3.8 MMOL/L (3.5-5.1); SODIUM LEVEL 142 MMOL/L (136-145); TOTAL PROTEIN 6.5 G/DL (5.7-8.2)
[2022-04-09 18:04] LABS: CPK CREATINE PHOSPHOKINASE 89 U/L (34-145); MB/CK RELATIVE INDEX 1.12 (< OR =4)
== END 2022-04-09 18:31 | disposition home or self-care (01) ==
LOC: M ED 13:09
DX: R07.9 Chest pain, unspecified (principal); I25.2 Old myocardial infarction; I10 Essential (primary) hypertension; Z88.5 Allergy status to narcotic agent; Z79.1 Long term (current) use of non-steroidal anti-inflammatories (NSAID); Z79.810 Long term (current) use of selective estrogen receptor modulators (SERMs); Z79.811 Long term (current) use of aromatase inhibitors; Z79.899 Other long term (current) drug therapy

== ENCOUNTER → 2022-07-11 | Outpatient (CLI) | payer BC, OTHER ==
[2022-07-11 11:20] LABS: CHOLESTEROL RISK RATIO 3.86 (<5); HDL CHOLESTEROL 44.2 MG/DL (>40); LDL CHOLESTEROL 100.6 MG/DL (<100); NON-HDL-C 126.8 MG/DL
[2022-07-11 11:22] LABS: THYROID STIMULATING HORMONE 1.778 uIU/ML (0.55-4.78)
== END ==
LOC: M PLALAB 08:40
PROVIDERS: ATTEND Nurse Practitioner Adult Health
DX: Z00.00 Encounter for general adult medical examination without abnormal findings (principal); E78.2 Mixed hyperlipidemia

== ENCOUNTER → 2023-02-19 | Outpatient (CLI) | payer BC, OTHER ==
[~2023-02-19] MED LIST changes: -BIOT50004 PO; +BIOT5CAP8 PO; +DICL100G10 TOP; -DICL1GEL3 TOP
== END ==
LOC: M WHC 13:51
PROVIDERS: ATTEND Nurse Practitioner Family
DX: Z12.31 Encounter for screening mammogram for malignant neoplasm of breast (principal)

== ENCOUNTER → 2024-02-24 | Outpatient (CLI) | payer BC | LOC: M WHC 14:27 | PROVIDERS: ATTEND Physician Assistant | DX: Z12.31 Encounter for screening mammogram for malignant neoplasm of breast (principal); R92.313 Mammographic fatty tissue density, bilateral breasts ==